=== PATIENT | female | born 1970 | race Two or more races ===

== ENCOUNTER 2019-10-16 20:21 | Emergency (ER) | payer MEDICAID, OTHER ==
[~2019-10-16] VITALS: Ht 175.3 cm; Wt 90.7 kg
[2019-10-16] MEDS ORDERED: LEVOTHYROXINE75 MCG ORAL (20:32)
--- NOTE | 2019-10-16 20:33 | NUR ---
ED Nurse Note: pt ambulated into ED from home CO injuring right calf while walking up stairs. PT reports hearing a "pop" sound while going up stairs and believes she had a severe muscle spasm. Pt VSS, no s/s of distress noted. Pt resting in bed awaiting ermd
--- NOTE | 2019-10-16 20:35 | NUR ---
ED Nurse Note: ERMD at bedside
[2019-10-16] MEDS ORDERED: LIDODERM700 M1 TOPIC (20:42)
[2019-10-16] MEDS ORDERED: IBUPROFEN600 MG ORAL (20:42)
[2019-10-16] MEDS ORDERED: ROBAXIN-750750 MG PO (20:42)
--- NOTE | 2019-10-16 20:43 | NUR ---
ED Nurse Note: ERMD at bedside
[2019-10-16] MEDS ORDERED: HYDROcodone/Acetamin 5/325 tab ORAL ONE (20:45)
[2019-10-16] MEDS ORDERED: Methocarbamol 750mg tab ORAL ONE (20:45)
--- NOTE | 2019-10-16 20:46 | Emergency Room Report ---
History of Present Illness General Chief Complaint: Lower Extremity Injury Source: Patient Present Illness HPI Disclaimer: Please note that this report is being documented using DRAGON technology. This can lead to erroneous entry secondary to incorrect interpretation by the dictating instrument. HPI: 79-year-old female presents for evaluation of right calf injury. The patient was walking up a flight of stairs when she felt a sudden popping sensation in the right calf and pain. There is no swelling noted. She is able to bear weight though it is very painful. There was no fall or trauma. No injury to the ankle, knee or hip. She notes cramping/spasming pain and difficulty relaxing the right calf. No prior history of injury. Denies any numbness or tingling. Allergies: Coded Allergies: No Known Allergies (Unverified , 10/16/19) Patient History Last Menstrual Period: na Review of Systems All Other Systems: negative except mentioned in HPI Physical Exam Vital Signs Date Time Temp Pulse Resp B/P (MAP) Pulse Ox O2 Delivery O2 Flow Rate FiO2 10/16/19 20:26 98.6 81 16 143/86 (105) 95 Room Air General: Awake and alert, no acute distress HEENT: NC/AT. EOMI. Resp: Normal work of breathing Skin: Intact. No abrasions, laceration or rash over the exposed skin MSK: Normal tone and bulk. Moving all extremities. No obvious deformity. Calves are symmetrical. Significant tenderness on palpation of the right gastrocnemius muscle belly. There is a point tenderness to it likely the source of the spasm. Ankle, knee, hip have full range of motion. She is able to bear weight. Sensation is intact over the lower extremities bilaterally. Knee is stable. Neuro: Awake and alert. Mentating appropriately Medical Decision Making Diagnostic Impression: Primary Impression: Strain of calf muscle Additional Impression: Muscle spasm of calf ER Course 49-year-old female presents for evaluation of right calf pain and cramping. Likely a either strain or spasm of the right gastrocnemius. She will be treated with NSAIDs, lidocaine patch and Robaxin. No evidence of injury to the ankle, knee or hip or other complaints at this time. Do not believe she requires emergent labs or imaging. Will treat symptomatically and discharged with PMD and orthopedic follow-up as needed. Discussed reasons to return to the emergency department. She understands and agrees with this treatment plan. Last Vital Signs Date Time Temp Pulse Resp B/P (MAP) Pulse Ox O2 Delivery O2 Flow Rate FiO2 10/16/19 20:26 98.6 81 16 143/86 (105) 95 Room Air Disposition: HOME, SELF-CARE Condition: Stable Scripts Lidocaine Patch* (Lidoderm Patch*) 1 Each Adh..patch 1 PATCH TOPIC DAILY, #7 PATCH 0 Refills Patch(es) may remain in place for up to 12 hours in any 24-hour period. Prov: Fabián Griffin MD 10/16/19 Methocarbamol* (ROBAXIN-750*) 750 Mg Tablet 750 MG PO QID, #28 TAB 0 Refills Prov: Fabián Griffin MD 10/16/19 Ibuprofen* (MOTRIN*) 600 Mg Tablet 600 MG ORAL Q8H PRN for For Pain, #30 TAB 0 Refills Prov: Fabián Griffin MD 10/16/19 [facility] 24 hour /7 days a week by Appointment Only [address] [address] Patient Instructions: Muscle Strain, [id number] Additional Instructions: Take your medications as prescribed. Follow-up with your primary doctor for reevaluation. Follow-up with your doctor should you require referral to orthopedic surgery. Return to the emergency department any new or worsening symptoms. Continue to stretch and apply warm heat to loosen the muscle. Fabián Griffin MD Oct 16, 2019 20:46
--- NOTE | 2019-10-16 20:50 | NUR ---
ED Nurse Note: All medications administered, no adverse reactions noted. pt tolerated well
[2019-10-16 20:59] VITALS: BP 140/82
--- NOTE | 2019-10-16 20:59 | NUR ---
ER DISCHARGE NOTE: Patient is cleared to be discharged home per ERMD, pt is aox4, on room air, with stable vital signs. pt was given dc and prescription instructions, pt was able to verbalize understanding, pt id band aremoved. pt is able to ambulate with steady gait. pt took all belongings.
== END 2019-10-16 20:59 | disposition home or self-care (01) ==
LOC: EMR 20:58
DX: S89.91XA Unspecified injury of right lower leg, initial encounter (principal); M62.831 Muscle spasm of calf; X58.XXXA Exposure to other specified factors, initial encounter; Y92.9 Unspecified place or not applicable
CPT/HCPCS: 99282